=== PATIENT | female | born 1945 | race Caucasian/White ===

== ENCOUNTER 2017-11-23 10:35 | Observation (INO) | payer MEDICARE, BC ==
[2017-11-23 11:49] LABS: Band 4 % (5-11); Hemoglobin 12.7 g/dL (12.0-16.0); Lymphocytes 38 % (21-51); MDiff Complete? YES; Mean Corpuscular HGB CONC 33.2 g/dL (32.0-36.0); Mean Corpuscular Hemoglobin 30.5 pg (27.0-31.0); Mean Platelet Volume 5.9 fL (7.4-10.4); Monocytes 10 % (0-10); Neutrophil 47 % (42-75); Platelet Count 398 thou/uL (130-400); RBC Distribution Width 12.1 % (11.5-14.5); Red Blood Cell (RBC) Count 4.17 mill/uL (4.20-5.40); White Blood Cell (WBC) Count 8.6 thou/uL (4.8-10.8)
[2017-11-23 11:52] LABS: ALT (SGPT) 32 U/L (8-55); AST (SGOT) 38 U/L (5-34); Albumin 3.7 g/dL (3.4-4.8); Alkaline Phosphatase 74 U/L (40-150); Anion Gap 16 mmol/L (10-20); BUN (Urea Nitrogen) 11 mg/dL (9.8-20.1); Bilirubin, Total 0.7 mg/dL (0.2-1.2); Calc. Creatinine Clearance 0 mL/min (70-130); Calcium 9.9 mg/dL (7.8-10.44); Carbon Dioxide 25 mmol/L (23-31); Chloride 97 mmol/L (98-107); Estimated GFR-MDRD 71; Globulin 4.1 g/dL (2.4-3.5); Glucose 114 mg/dL (83-110); Potassium 3.1 mmol/L (3.5-5.1); Protein, Total 7.8 g/dL (6.0-8.3); Sodium 135 mmol/L (136-145)
[2017-11-23 11:55] LABS: CKMB 0.8 ng/mL (0-6.6); Troponin I Less than 0.010 ng/mL (< 0.028)
--- NOTE | 2017-11-23 12:37 | CT ---
CT BRAIN WITHOUT CONTRAST: COMPARISON: None. HISTORY: Facial drooping and slurred speech. TIA. TECHNIQUE: Multiple contiguous axial images were obtained in a CT of the brain without contrast. FINDINGS: There are a few scattered hypodensities in the subcortical and periventricular white matter, likely s econdary to small-vessel ischemic disease. No large confluent infarction is seen. There is no evide nce of hydrocephalus, intracranial hemorrhage, or extraaxial fluid collection. The calvarium and overlying soft tissues are unremarkable. The visualized paranasal sinuses and mast oid air cells are well aerated. IMPRESSION: No evidence of acute intracranial abnormality. POS: [facility]
--- NOTE | 2017-11-23 13:32 | ULT ---
BILATERAL LOWER EXTREMITY VENOUS ULTRASOUND: COMPARISON: None. HISTORY: Stroke-like symptoms and long-term bed rest. Bilateral lower extremity edema. TECHNIQUE: Multiplanar, dia scale, and color Doppler images were obtained in a bilateral lower extremity venous ultrasound. Spectral analysis of the Doppler waveforms was performed. FINDINGS: The bilateral common femoral veins, profunda femoral veins, superficial femoral veins, and popliteal veins are normal in appearance without visible thrombus. These vessels demonstrate normal compressio n, flow, and augmentation. The posterior tibial veins and greater saphenous veins are also patent. IMPRESSION: No evidence of deep vein thrombosis. POS: [facility]
[2017-11-23] MEDS ORDERED: Aspirin 325 MG TAB ONE (14:49)
[2017-11-23] MEDS ORDERED: Potassium Chloride 20 MEQ TAB PO SCH (16:00)
[2017-11-23] MEDS ORDERED: 1/2 NS w/KCL 20 mEq 1,000 ML IV SCH (16:00)
[2017-11-23] MEDS ORDERED: Mag-Al 1200 mg/1200 mg/30 ML UDCUP PO PRN (16:24)
[2017-11-23] MEDS ORDERED: Ondansetron HCl/PF 4 MG/2 ML Vial IVP PRN (16:24)
[2017-11-23] MEDS ORDERED: Senokot 8.6 MG TAB PO PRN (16:24)
[2017-11-23] MEDS ORDERED: Acetaminophen 325 MG TAB PO PRN (16:24)
[2017-11-23] MEDS ORDERED: diphenhydrAMINE 25 MG CAP PO PRN (16:24)
[2017-11-23] MEDS ORDERED: Bisacodyl 5 MG TAB PO PRN (16:24)
[2017-11-23] MEDS ORDERED: hydrALAZINE 20 MG/ML VIAL SLOW IVP PRN (16:24)
[2017-11-23] MEDS ORDERED: Calcium Carbonate 500 MG ChewTAB PO PRN (16:24)
--- NOTE | 2017-11-23 16:44 | HP ---
DATE OF ADMISSION: 11/23/2017 PRIMARY CARE PHYSICIAN: Hilton Taylor D.O. PRIMARY EXPERIMENTAL PLASTICS FABRICATOR: Dr. Stark. CHIEF COMPLAINT: Swelling of the upper lip, swelling of the tongue, difficulty swallowing and slurred speech. HISTORY OF PRESENTING ILLNESS: Ms. Ventura is a very pleasant 72-year-old female with past medical history of hypertension, diabetes, and GERD who presented to the emergency room with above-mentioned complaint. History is mainly obtained by the patient herself and supplemented by her family members present in the room. Electronic medical records have been reviewed and case has been discussed with admitting ER physician. Ms. Ventura reports that yesterday she took [address] Henning. She has a reported allergy to DR. PEPPER but decided to drink 3 can despite that. Shortly after that she developed upper lip swelling. She went to bed thinking that it would go away, but when she woke up this morning, she still had upper lip swelling. After waking up, she started to feel that her tongue has swollen up. Later when she tried to eat her breakfast, she noticed that she is having difficulty swallowing the food down her throat. She did not have any difficulty holding the food or water in her mouth. Her family who called her in the morning also noticed that she had some slurred speech. Nevertheless, the patient took 2 Benadryl and her symptoms went away. But because of the slurred speech and difficulty with swallowing, the family decided that it might be a mini stroke and brought her to the emergency room for further workup. Other than that, she denies any recent illnesses. She has been in her fair health. She does report chronic diarrhea and she blames it on the Nexium that she has to take chronically. The patient denies any other recent illnesses. She denies any hematochezia or melena. She denies any dysuria, frequency, urgency. She does have some frequent urination and complains of difficulty holding the urine. She denies any cardiac symptoms like shortness of breath, orthopnea, PND or chest pain. She has no other neurological signs and symptoms. She denies any muscle weakness or paraesthesias. She does not take any aspirin on a daily basis. She does have history of dyslipidemia for which she takes statins. Her other risk factors include history of hypertension and family history of coronary artery disease. In the emergency room upon presentation, she was hemodynamically stable. She underwent a CT scan of the brain which was unremarkable. Her supplemented some of the story and reported that the patient has sprained both of her ankles one after the other in the last 2 or 3 weeks, getting off of his big pickup truck. She has been less than mobile. She denies any pain or swelling of her lower extremities. She underwent lower extremity ultrasound which is negative for DVT in both legs. She is now being admitted under observation status to stroke unit to rule out CVA. PAST MEDICAL HISTORY: 1. Hypertension. 2. Dyslipidemia. 3. Gastroesophageal reflux disease. 4. History of irritable bowel syndrome. 5. Hypothyroidism. PAST SURGICAL HISTORY: 1. Back surgery for a cyst. 2. Cholecystectomy. 3. Hysterectomy. 4. Bilateral carpal tunnel release. 5. Left knee replacement. PSYCHIATRIC HISTORY: No anxiety or depression. SOCIAL HISTORY: She lives with her family and is otherwise independent with her ADLs and IADLs. No history of drug, tobacco or alcohol abuse. ALLERGIES: Include, 1. AUGMENTIN. 2. DEMEROL. 3. MEPERIDINE. FAMILY HISTORY- no premature CAD,CVA CURRENT MEDICATIONS: Unknown. The patient's family did not bring the medications, but she remembers taking Crestor. These will further be clarified. REVIEW OF SYSTEMS: The following complete review of systems was negative, unless otherwise mentioned in the HPI or below: Constitutional: Weight loss or gain, ability to conduct usual activities. Skin: Rash, itching. Eyes: Double vision, pain. ENT/Mouth: Nose bleeding, neck stiffness, pain, tenderness. Cardiovascular: Palpitations, dyspnea on exertion, orthopnea. Respiratory: Shortness of breath, wheezing, cough, hemoptysis, fever or night sweats. Gastrointestinal: Poor appetite, abdominal pain, heartburn, nausea, vomiting, constipation, or diarrhea. Genitourinary: Urgency, frequency, dysuria, nocturia. Musculoskeletal: Pain, swelling. Neurologic/Psychiatric: Anxiety, depression. Allergy/Immunologic: Skin rash, bleeding tendency. If it is negative except for those mentioned in the history and physical. LABORATORY DATA AND IMAGING DATA: CBC shows WBCs 8.6, hemoglobin 12.4, platelet count of 398. Serum chemistry showed somewhat low sodium at 135 and hypokalemia with potassium of 3.1. Her bicarbonate is 25 and her chloride is low at 97. Blood sugar 114, AST 38. Cardiac enzymes are unremarkable. CT scan of the brain by my interview has no evidence to suggest acute infarction, hemorrhage or mass. Lower extremity ultrasound is negative for any DVT bilaterally. PHYSICAL EXAMINATION: VITAL SIGNS: Upon presentation, blood pressure 152/81, pulse of 98, respirations 14, saturating 96% on room air, temperature 98.7. GENERAL: No acute distress, awake, alert, oriented x3, lying comfortably in bed. Family is at present. HEENT: Mucous membranes are slightly dry. No oropharyngeal exudate or erythema. Head is normocephalic, atraumatic. Pupils are equal, reactive to light and accommodation. Extraocular movements intact. There is no swelling of the tongue, throat or lip on my examination. NECK: Supple without any lymphadenopathy, JVD or bruit. CHEST: Clear to auscultation without any wheezing, rales or rhonchi. CARDIOVASCULAR: Rhythm is regular without any murmur, rubs or gallops. ABDOMEN: Soft, nontender, nondistended. Positive bowel sounds. EXTREMITIES: Free of any cyanosis, clubbing, or edema. NEUROLOGIC: Examination is nonfocal. Cranial nerves II-XII are grossly intact. Muscle strength is 5/5 in all 4 extremities. [id number] testing intact. SKIN: Free of any rashes or bruises. Feels warm and dry to touch. EXTREMITIES: Free of any cyanosis, clubbing, or edema. PSYCHIATRIC: No anxiety or depression. IMPRESSION AND PLAN: 1. Slurred speech and difficulty swallowing. Most likely these symptoms are secondary to allergic reaction to DR. HENNING which the patient has known allergy to it. Her symptoms have gone away with Benadryl which further corroborates the story. Nevertheless, she is being admitted to rule out cerebrovascular accident and we will initiate the stroke workup including transthoracic echocardiogram, MRI of the brain as well as carotid Doppler ultrasound. At the same time, we will start her on H2 and H1 blockers for possible allergic reaction. The patient's symptoms have completely subsided and there is no evidence to suggest airway compromise. We will check lipid profile as well and admit her on the stroke floor with frequent neuro checks. If her MRI is abnormal, we will consult Neurology. 2. Chronic diarrhea. The patient is on Nexium. We will rule out Clostridium difficile. She might also be possibly having microscopic colitis because of the Nexium. I have encouraged them to hold this for a few days and monitor her symptoms of heartburn. At this time, she will be treated with IV Pepcid. We will replete the electrolytes and start her on gentle IV fluid hydration with potassium. 3. Hyponatremia with hypochloremia likely secondary to chronic diarrhea. The patient has been going 5-6 times a day. We will start her on IV fluids with normal saline and repeat the labs in the morning, also check. 4. Hypokalemia, once again likely due to chronic diarrhea and proton pump inhibitor and because she is on proton pump inhibitor we will also rule out hypomagnesemia. We will check and repeat magnesium as needed. 5. History of hypertension. We will resume her home medications once confirmed. 6. History of dyslipidemia. Check her lipid profile and then restart her statin once the dose was confirmed. 7. Urinary frequency and urgency. Check urinalysis to rule out urinary tract infection, especially because the patient is incontinent of stool and urine at the same time. 8. Code status: FULL CODE. Discussed with the patient. 9. Add p.r.n. medication orders. 10. Deep venous thrombosis and gastrointestinal prophylaxis. DISPOSITION: Ms. Ventura is being admitted under observation status for CVA workup and will be treated also for allergic reaction. Further management will depend upon her clinical course. [facility]OD
[2017-11-23 17:28] LABS: Bilirubin Negative (Negative); Blood, Urine Negative (Negative); Clarity CLEAR (Clear); Glucose, Urine (Dipstick) Negative (Negative); Leukocyte Negative (Negative); Nitrite Negative (Negative); Protein, Urine (Dipstick) Negative (Neg-Trace); Specific Gravity, Urine 1.009 (1.002-1.036); Urobilinogen 0.2 mg/dL (0.2-1.0)
[2017-11-23 17:29] VITALS: BMI 28.1
[2017-11-23] MEDS: NS 0.9% w/ 20 MEQ KCL 1,000 ML/1,000 ML BAG IV SCH (18:49)
[2017-11-23] MEDS ORDERED: Atorvastatin Calcium 20 MG TAB PO SCH (21:00)
[2017-11-23] MEDS: Famotidine/PF 20 mg/2ml Vial SLOW IVP SCH (21:05)
[2017-11-24] MEDS: NS 0.9% w/ 20 MEQ KCL 1,000 ML/1,000 ML BAG IV SCH (05:29)
[2017-11-24 05:48] LABS: Cardiac Risk 4.8 (Less than 4.5)
[2017-11-24 05:49] LABS: Anion Gap 13 mmol/L (10-20); BUN (Urea Nitrogen) 10 mg/dL (9.8-20.1); Calc. Creatinine Clearance 82 mL/min (70-130); Calcium 9.1 mg/dL (7.8-10.44); Carbon Dioxide 24 mmol/L (23-31); Chloride 104 mmol/L (98-107); Estimated GFR-MDRD 82; Glucose 88 mg/dL (83-110); Potassium 3.5 mmol/L (3.5-5.1); Sodium 137 mmol/L (136-145)
[2017-11-24 06:35] LABS: Band 1 % (5-11); Hemoglobin 11.7 g/dL (12.0-16.0); Lymphocytes 45 % (21-51); MDiff Complete? YES; Mean Corpuscular HGB CONC 33.7 g/dL (32.0-36.0); Mean Corpuscular Hemoglobin 31.2 pg (27.0-31.0); Mean Corpuscular Volume 92.6 fl (81.0-99.0); Mean Platelet Volume 5.9 fL (7.4-10.4); Monocytes 21 % (0-10); Neutrophil 33 % (42-75); Platelet Count 352 thou/uL (130-400); Red Blood Cell (RBC) Count 3.74 mill/uL (4.20-5.40); White Blood Cell (WBC) Count 6.8 thou/uL (4.8-10.8)
[2017-11-24] MEDS ORDERED: Enoxaparin Sodium 40 MG/0.4 ML SYRINGE SC SCH (09:00)
[2017-11-24] MEDS ORDERED: Aspirin 325 mg Enteric Coated Tablet PO SCH (09:00)
[2017-11-24] MEDS: Famotidine/PF 20 mg/2ml Vial SLOW IVP SCH (09:13)
--- NOTE | 2017-11-24 09:48 | MRI ---
MRI BRAIN NONCONTRAST: HISTORY: TIA. FINDINGS: There is no evidence of acute intracranial hemorrhage or infarct. Mild chronic ischemic small vessel disease is apparent within the periventricular white matter of each cerebral hemisphere. There is n o mass effect or shift of midline structures. IMPRESSION: No acute intracranial abnormalities are demonstrated. POS: [facility]
[2017-11-24] MEDS ORDERED: Ramipril 5 MG CAP PO SCH ×2 (11:00→21:00)
[2017-11-24 15:46] VITALS: TEMP 98.8
[2017-11-24 16:28] VITALS: BP 138/64
--- NOTE | 2017-11-25 08:11 | DIS ---
DATE OF DISCHARGE: 11/25/2017 PRIMARY CARE PHYSICIAN: Dr. Richard Taylor DISCHARGE DIAGNOSES: 1. Allergic reaction secondary to Dr. Milady utilization. 2. Slurred speech, resolved without evidence of cerebrovascular accident, question of allergic reaction versus transient ischemic attack. 3. Sprained ankles, bilateral. 4. Failure to thrive. 5. Hypokalemia and hypomagnesemia, resolved. BRIEF SUMMARY OF HOSPITAL COURSE: A 72-year-old female with a known history of gastroesophageal reflux disease stools who presented with a chief complaint of slurred speech after having consumed [address] Dr[address] Miladys for which she has a known allergy. At the time of discharge, the patient's symptoms have completely resolved. The patient was also evaluated for consideration of possible TIA or CVA. MRI has been unrevealing, echocardiogram demonstrates reasonable ejection fraction without any further evidence of abnormality beyond a grade I diastolic dysfunction. During this hospitalization, the patient endorsed having chronic gastroesophageal reflux disease for which she takes Nexium long-term. The patient has developed fluid stools where she has anywhere from 3-6 bowel movements a day that has been chronic and ongoing for "years." It appears that the patient was last seen by a mold stacker greater than 15 years ago for a colonoscopy and has not seen one since then. Also, the patient has sprained both of her ankles within the last 2 weeks which has greatly impaired her mobility. During his hospitalization Physical Therapy has been consulted for evaluation and have recommended outpatient physical therapy; prescription has been given. The remaining chronic medical issues were stable during hospitalization. The patient was noted to have some mild hypokalemia and hypomagnesemia on admission, felt likely secondary to stool losses. At the time of discharge, these values are now stable. The patient has been asked to follow up with a repeat BMP and magnesium to ensure that she does not have recurrent electrolyte disturbances. MEDICATION RECONCILIATION: Please see the MAR for full details, Briefly, the patient will resume her home regimen. DISCHARGE AND FOLLOWUP INSTRUCTIONS: The patient has been asked to follow up closely with her primary care provider. The patient has been asked to obtain followup BMP and magnesium in approximately 3 days with results to be sent to her primary care provider. The patient has been requested to follow up with Gastroenterology of her choice on an outpatient basis. The patient has been given prescription for physical therapy as discussed above. This has been discussed in detail with the patient and her at bedside, both of whom are able to complete teach back. Thank you for asking me to care for your patient. Greater than 30 minutes spent coordinating discharge. ANGIE
--- NOTE | 2017-12-07 13:41 | EKG ---
Test Reason : Blood Pressure : / mmHG Vent. Rate : 092 BPM Atrial Rate : 092 BPM P-R Int : 144 ms QRS Dur : 086 ms QT Int : 396 ms P-R-T Axes : 012 -19 055 degrees QTc Int : 489 ms Sinus rhythm with occasional Premature ventricular complexes Inferior infarct , age undetermined Abnormal ECG Confirmed by ALFONZO GRANT ([id number]), general expeditor ZOILA NUNEZ ([id number] on 12/07/2017 1:40:46 PM Referred By: Confirmed By:ALFONZO GRANT
== END 2017-11-24 16:35 | disposition home or self-care (01) ==
LOC: ERS 10:35 → 2SE 16:17
PROVIDERS: ADMIT Internal Medicine; ATTEND Internal Medicine
DX: T78.1XXA Other adverse food reactions, not elsewhere classified, initial encounter (principal); R47.81 Slurred speech; S93.402A Sprain of unspecified ligament of left ankle, initial encounter; S93.401A Sprain of unspecified ligament of right ankle, initial encounter; R62.7 Adult failure to thrive; E87.6 Hypokalemia; E83.42 Hypomagnesemia; K21.9 Gastro-esophageal reflux disease without esophagitis; I10 Essential (primary) hypertension; E78.5 Hyperlipidemia, unspecified; E03.9 Hypothyroidism, unspecified; K58.9 Irritable bowel syndrome, unspecified; Z88.8 Allergy status to other drugs, medicaments and biological substances; Z79.899 Other long term (current) drug therapy; Z90.49 Acquired absence of other specified parts of digestive tract; Z90.710 Acquired absence of both cervix and uterus; Z96.652 Presence of left artificial knee joint; Z98.890 Other specified postprocedural states; M79.605 Pain in left leg; M79.604 Pain in right leg
CPT/HCPCS: 70450; 70551; 80048; 80053; 80061; 81003; 82553; 83735; 84484; 85025 ×2; 87324; 87449; 93005; 93306; 93970; 96365; 96366 ×2; 96372; 96375; 96376; 97116; 97139 ×2; 99291; G0378; G8978; G8979; 36415; J1650; S0028

== ENCOUNTER 2024-12-16 10:21 | Emergency (ER) | payer MEDICARE ==
[2024-12-16 11:05] LABS: Bilirubin Negative (Negative); Blood, Urine Negative (Negative); CAUTI Indications for Culture Fever or rigors; Clarity Clear (Clear); Glucose, Urine (Dipstick) Normal (Negative); Ketone, Urine Negative (Negative); Leukocyte Negative Leu/uL (Negative); Nitrite Negative (Negative); Protein, Urine (Dipstick) 20 mg/dL (Neg-Trace); RBC/HPF 0-3 HPF (0-3); Squamous Epithelial 0-3 HPF (0-3); Urobilinogen Normal mg/dL (Less than 2); WBC/HPF 0-3 HPF (0-3); pH, Urine 5.5 (5.0-9.0)
[2024-12-16 11:18] LABS: Actual Bicarbonate (HCO3v) 21.3 mEq/L (22-28); Base Excess -2.6 mEq/L (-2.0 to +3.0); Chloride (VBG) 99 mmol/L (98-106); Hematocrit-VBG 44 % (36.0-47.0); Potassium (VBG) 3.57 mmol/L (3.70-5.30); Sodium 138 mmol/L (133-146)
[2024-12-16 11:20] LABS: Bacteria/HPF Rare-Few HPF (None Seen)
[2024-12-16 11:22] LABS: Urine Culture Reflex No No
[2024-12-16 11:27] LABS: Hematocrit 40.5 % (36.0-47.0); Hemoglobin 13.8 g/dL (12.0-16.0); Mean Corpuscular HGB CONC 34.1 g/dL (32.0-36.0); Platelet Count 142 10x3/uL (130-400); RBC Distribution Width 13.2 % (11.5-14.5)
[2024-12-16 11:59] LABS: ALT (SGPT) 23 U/L (Less than 34); AST (SGOT) 48 U/L (11-34); Albumin 4.1 g/dL (3.1-4.5); Alkaline Phosphatase 56 U/L (40-110); Anion Gap 17 mmol/L (10-20); BUN (Urea Nitrogen) 9 mg/dL (9.8-20.1); Band 5 % (5-11); Bilirubin, Total 0.9 mg/dL (0.3-1.2); Calc. Creatinine Clearance 0 mL/min (70-130); Calcium 9.3 mg/dL (7.8-10.44); Carbon Dioxide 20 mmol/L (23-31); Chloride 104 mmol/L (98-107); Estimated GFR 59; Globulin 4.1 g/dL (2.4-3.5); Glucose 122 mg/dL (83-110); Large Platelets 5.9 % (0-5); Lymphocytes 4 % (21-51); Monocytes 21 % (0-10); Myelocyte 1 % (0-0); Neutrophil 69 % (42-75); Platelet Adequacy Comment Platelets Normal; Potassium 3.5 mmol/L (3.5-5.1); Protein, Total 8.2 g/dL (5.8-8.1); RBC Morphology Within Normal Limits; Smudge Cells 27.7 %; Sodium 137 mmol/L (136-145)
[2024-12-16] MEDS ORDERED: Acetaminophen 500 MG TAB ONE (12:25)
== END 2024-12-16 14:57 | disposition home or self-care (01) ==
LOC: ERS 10:21
DX: J10.1 Influenza due to other identified influenza virus with other respiratory manifestations (principal); I10 Essential (primary) hypertension; Z79.82 Long term (current) use of aspirin; Z79.899 Other long term (current) drug therapy
CPT/HCPCS: 36415; 71045; 80053; 81001; 82805; 83605; 85025; 87040; 87086; 87428; 93005; 94760